=== PATIENT | female | born 2000 | race Caucasian/White ===

== ENCOUNTER 2025-05-14 17:04 | Emergency (ER) | payer BC ==
[2025-05-14 17:09] VITALS: BP 123/80; PULSE 101; RESP 20; TEMP 99.7; BMI 26.4
[2025-05-14] MEDS ORDERED: DEXAMETHASONE SOD PHOSPHATE 10 MG/1 ML VIAL ONE (17:45)
[2025-05-14] MEDS: DEXAMETHASONE SOD PHOSPHATE 10 MG/1 ML VIAL IVPUSH ONE (17:47)
== END 2025-05-14 17:50 | disposition home or self-care (01) ==
LOC: JERFT 17:04
PROC: 3E033GC Introduction of Other Therapeutic Substance into Peripheral Vein, Percutaneous Approach (ICD-10-PCS; principal; 2025-05-14)
DX: J02.9 Acute pharyngitis, unspecified (principal); R51.9 Headache, unspecified; H92.01 Otalgia, right ear; M79.10 Myalgia, unspecified site; B34.9 Viral infection, unspecified
CPT/HCPCS: 87651; 96374; 99283-25; J1100